=== PATIENT | female | born 1935 | race Caucasian/White ===

== ENCOUNTER 2017-10-27 21:59 | Emergency (ER) | payer MEDICARE, BC ==
[~2017-10-27] VITALS: Ht 152.4 cm; Wt 63.6 kg
[~2017-10-27 21:59] MED LIST: ACTONEL150 MG PO; ADLT ASA LOW81 MG PO; ALPRAZOLAM0.25 MG PO; ASPIRIN LOW DOS81 M2 PO; CALCIUM PO; CLOBETASOL0.053 EX; COUMADIN2.5 MG PO; COUMADIN7.5 MG PO; DOCUSATE CAL240 MG PO; DULERA1 AE1 IN; ENALAPRIL5 MG PO; FISH OIL1000 MG PO; FLAX SEED1000 MG PO; FOSAMAX70 MG PO; IBUPROFEN600 MG PO; ISOSORB MONO30 MG PO; LEXAPRO10 MG PO; LOVENOX40 MG/0.4 SC; METOPROL TAR25 MG PO; MULTI VITAMN PO; OXYBUTYNIN5 M1 PO; PANTOPRAZOLE SO40 MG PO; PRAVASTATIN SOD20 MG PO; PROTONIX40 MG PO; ROCEPHIN1 G1 IM; SIMVASTATIN20 MG PO; TIMOLOL 0.5%5 ML OP; TIMOLOL 0.5%5 ML OU; TRAMADOL HCL50 MG PO; TRAVATAN0.004 % OU; TRAVATAN0.0041 OP; VITAMIN C500 M1 PO; VITAMIN E400 UNIT PO; XANAX0.25 MG PO; [UNRECOGNIZED DRUG - CODE] PO; [UNRECOGNIZED DRUG - OTHER] PO
[2017-10-27] MEDS ORDERED: AMLODIPINE5 MG PO (22:14)
[2017-10-27] MEDS ORDERED: FLAX SEED1000 MG PO (22:15)
[2017-10-27] MEDS ORDERED: CENTRUM SILVER1 TA1 PO (22:15)
[2017-10-27] MEDS ORDERED: GLUCOSAMINE & C1 CAP PO (22:16)
[2017-10-27 22:34] LABS: URINE BILIRUBIN - DIPSTICK NEGATIVE (NEGATIVE); URINE BLOOD DIPSTICK LARGE (NEGATIVE); URINE GLUCOSE - DIPSTICK NEGATIVE (NEGATIVE); URINE KETONE NEGATIVE (NEGATIVE); URINE LEUK ESTERASE TRACE (NEGATIVE); URINE NITRITE - DIPSTICK NEGATIVE (Negative); URINE PROTEIN - DIPSTICK 100 mg/dL (NEG-TRACE); URINE SPECIFIC GRAVITY <=1.005; URINE UROBILINOGEN - DIPSTICK 0.2 E.U./dL (0.2)
[2017-10-27 22:35] LABS: URINE CLARITY BLOODY; URINE COLOR RED; URINE EPITHELIAL CELLS FEW EPI/hpf (0-FEW); URINE RBC 50-100 RBC/hpf (0-5); URINE WBC 0-2 WBC/hpf (0-5)
[2017-10-27] MEDS ORDERED: BACTRIM DS1 TAB PO (22:46)
[2017-10-27 23:10] VITALS: BP 156/78
== END 2017-10-27 23:10 | disposition home or self-care (01) ==
LOC: ED 21:59
PROVIDERS: Family Medicine
DX: N30.01 Acute cystitis with hematuria (principal); I10 Essential (primary) hypertension; I25.10 Atherosclerotic heart disease of native coronary artery without angina pectoris; I44.7 Left bundle-branch block, unspecified; K21.9 Gastro-esophageal reflux disease without esophagitis; E78.00 Pure hypercholesterolemia, unspecified; M48.00 Spinal stenosis, site unspecified; Z95.1 Presence of aortocoronary bypass graft

== ENCOUNTER 2017-10-30 10:27 | Emergency (ER) | payer MEDICARE, BC ==
[~2017-10-30] VITALS: Ht 152.4 cm; Wt 61.0 kg
[~2017-10-30 10:27] MED LIST changes: +AMLODIPINE5 MG PO; +BACTRIM DS1 TAB PO; +CENTRUM SILVER1 TA1 PO; +GLUCOSAMINE & C1 CAP PO
[2017-10-30] MEDS ORDERED: OXYBUTYNIN5 M1 PO (11:05)
[2017-10-30 11:41] LABS: URINE BILIRUBIN - DIPSTICK NEGATIVE (NEGATIVE); URINE BLOOD DIPSTICK LARGE (NEGATIVE); URINE COLOR RED; URINE GLUCOSE - DIPSTICK NEGATIVE (NEGATIVE); URINE KETONE NEGATIVE (NEGATIVE); URINE LEUK ESTERASE TRACE (NEGATIVE); URINE PH 7.5 (4.5-8.0); URINE PROTEIN - DIPSTICK 100 mg/dL (NEG-TRACE); URINE UROBILINOGEN - DIPSTICK 0.2 E.U./dL (0.2)
[2017-10-30 11:46] LABS: URINE CLARITY SL CLOUDY; URINE NITRITE - DIPSTICK POSITIVE (Negative)
[2017-10-30 11:47] LABS: URINE BACTERIA FEW hpf; URINE EPITHELIAL CELLS FEW EPI/hpf (0-FEW); URINE RBC 25-50 RBC/hpf (0-5)
[2017-10-30] MEDS ORDERED: KEFLEX500 M1 PO (12:14)
[2017-10-30] MEDS ORDERED: PYRIDIUM200 MG PO (12:14)
[2017-10-30 12:26] VITALS: BP 143/81
== END 2017-10-30 12:25 | disposition home or self-care (01) ==
LOC: ED 10:27
DX: N39.0 Urinary tract infection, site not specified (principal); I10 Essential (primary) hypertension; K21.9 Gastro-esophageal reflux disease without esophagitis; E78.00 Pure hypercholesterolemia, unspecified; I25.10 Atherosclerotic heart disease of native coronary artery without angina pectoris; Z95.1 Presence of aortocoronary bypass graft

== ENCOUNTER → 2018-04-26 | Outpatient (REF) | payer MEDICARE, BC ==
[~2018-04-26] MED LIST changes: +KEFLEX500 M1 PO; +PYRIDIUM200 MG PO
[2018-04-26 14:23] LABS: HEMATOCRIT 40.9 % (37.0-47.0); HEMOGLOBIN 13.6 g/dl (12.0-16.0); MEAN CELL VOLUME 95.1 fL CALC (80.0-100.0); MEAN CORPUSCULAR HGB 31.6 pG CALC (26.0-32.0); MEAN CORPUSCULAR HGB CONC 33.3 g/L CALC (32.0-36.0); RED BLOOD COUNT 4.3 mill/uL (4.20-5.60); RED CELL DISTRI WIDTH 13.7 % (11.5-15.5)
[2018-04-26 14:28] LABS: ALBUMIN 4.4 g/dL (3.2-5.0); ALKALINE PHOSPHATASE 59 u/l (38-126); ANION GAP 15 (6-22 (CALC)); BILIRUBIN, TOTAL 1.2 mg/dL (0.0-1.4); BUN 8 mg/dL (8-23); BUN/CREATININE RATIO 11 (12-20 (CALC)); CALCULATED LDLCHOLESTEROL 44 mg/dL (62-129 (CALC)); CARBON DIOXIDE 27 mmol/l (22-30); CHLORIDE 103 mmol/l (95-108); CHOLESTEROL HDL RATIO 1.6 (<4.4 (CALC)); CREATININE 0.7 mg/dL (0.5-1.0); GFR > 60 ML/MIN (>=60 (CALC)); GFR FOR AFR.AMER. > 60 ML/MIN (>=60 (CALC)); HDL CHOLESTEROL 96 mg/dL (>=40); SGOT/AST 34 u/l (9-36); SODIUM 140 mmol/l (137-146); TOTAL CHOLESTEROL 151 mg/dl (0-199); TOTAL PROTEIN 7.8 g/dL (6.3-8.2); TOTAL TRIGLYCERIDES 56 mg/dl (30-149); VLDL CHOLESTROL 11 mg/dl (0-48 (CALC))
[2018-04-26 14:29] LABS: POTASSIUM 4.7 mmol/l (3.5-5.1)
[2018-04-26 14:57] LABS: TSH, 3RD GENERATION 2.52 uIU/mL (0.47 - 4.68)
== END | disposition home or self-care (01) ==
LOC: LAB 13:32
PROVIDERS: ATTEND Internal Medicine
DX: I10 Essential (primary) hypertension (principal); E78.49 Other hyperlipidemia; N18.9 Chronic kidney disease, unspecified; E03.9 Hypothyroidism, unspecified; R53.83 Other fatigue; I50.22 Chronic systolic (congestive) heart failure; E11.65 Type 2 diabetes mellitus with hyperglycemia

== ENCOUNTER 2018-09-29 10:26 | Emergency (ER) | payer MEDICARE, BC ==
[~2018-09-29] VITALS: Ht 152.4 cm; Wt 60.0 kg
[2018-09-29 11:07] LABS: HEMATOCRIT 43.2 % (37.0-47.0); HEMOGLOBIN 14.2 g/dl (12.0-16.0); MEAN CELL VOLUME 93.5 fL CALC (80.0-100.0); MEAN CORPUSCULAR HGB 30.7 pG CALC (26.0-32.0); MEAN CORPUSCULAR HGB CONC 32.9 g/L CALC (32.0-36.0); NEUT# 3.07 thou/uL (2.00-7.15); RED BLOOD COUNT 4.62 mill/uL (4.20-5.60); RED CELL DISTRI WIDTH 13.1 % (11.5-15.5)
[2018-09-29 11:19] LABS: ALBUMIN 4.6 g/dL (3.2-5.0); ALKALINE PHOSPHATASE 70 u/l (38-126); ANION GAP 14 (6-22 (CALC)); BUN 10 mg/dL (8-23); BUN/CREATININE RATIO 13 (12-20 (CALC)); CARBON DIOXIDE 27 mmol/l (22-30); CHLORIDE 102 mmol/l (95-108); CREATININE 0.7 mg/dL (0.5-1.0); GFR > 60 ML/MIN (>=60 (CALC)); GFR FOR AFR.AMER. > 60 ML/MIN (>=60 (CALC)); LIPASE 176 u/l (23-300); POTASSIUM 4.5 mmol/l (3.5-5.1); SODIUM 139 mmol/l (137-146); TOTAL PROTEIN 8.6 g/dL (6.3-8.2)
[2018-09-29 11:21] LABS: SGOT/AST 148 u/l (9-36)
[2018-09-29 11:30] LABS: MYOGLOBIN 31 ng/mL (0 - 62)
[2018-09-29] MEDS ORDERED: LIPITOR40 M1 PO (12:29)
[2018-09-29] MEDS ORDERED: GNP KRILL OIL O1 CAP PO (12:30)
[2018-09-29] MEDS ORDERED: VALSARTAN160 MG PO (12:30)
[2018-09-29 13:13] LABS: URINE BILIRUBIN - DIPSTICK NEGATIVE (NEGATIVE); URINE BLOOD DIPSTICK NEGATIVE (NEGATIVE); URINE COLOR YELLOW; URINE GLUCOSE - DIPSTICK NEGATIVE (NEGATIVE); URINE KETONE NEGATIVE (NEGATIVE); URINE LEUK ESTERASE NEGATIVE (NEGATIVE); URINE NITRITE - DIPSTICK NEGATIVE (Negative); URINE PH 7.5 (4.5-8.0); URINE PROTEIN - DIPSTICK NEGATIVE (NEG-TRACE); URINE SPECIFIC GRAVITY <=1.005; URINE UROBILINOGEN - DIPSTICK 0.2 E.U./dL (0.2)
[2018-09-29] MEDS ORDERED: PROTONIX40 MG PO (14:21)
[2018-09-29 14:30] VITALS: BP 135/63
== END 2018-09-29 14:41 | disposition home or self-care (01) ==
LOC: ED 10:26
PROVIDERS: Emergency Medicine
DX: R10.13 Epigastric pain (principal); I10 Essential (primary) hypertension; Z95.1 Presence of aortocoronary bypass graft; I25.10 Atherosclerotic heart disease of native coronary artery without angina pectoris; R07.9 Chest pain, unspecified
CPT/HCPCS: S0164

== ENCOUNTER 2018-12-14 06:43 | Day surgery (SDC) | payer MEDICARE, BC ==
[~2018-12-14] VITALS: Ht 152.4 cm; Wt 59.9 kg
[~2018-12-14 06:43] MED LIST changes: +COLACE100 MG PO; +COQ10200 MG PO; +GNP KRILL OIL O1 CAP PO; +LIPITOR40 M1 PO; +LOPRESSOR 550 MG/TAB PO; +NITROSTAT0.4 MG SL; +VALSARTAN160 MG PO
[2018-12-14 08:59] VITALS: BP 151/66
== END 2018-12-14 09:11 | disposition home or self-care (01) ==
LOC: ENDO 06:43
PROVIDERS: ATTEND Internal Medicine Gastroenterology
PROC: 0D758ZZ Dilation of Esophagus, Via Natural or Artificial Opening Endoscopic (ICD-10-PCS; principal; 2018-12-14)
PROC: 0DB78ZX Excision of Stomach, Pylorus, Via Natural or Artificial Opening Endoscopic, Diagnostic (ICD-10-PCS; 2018-12-14)
DX: K22.2 Esophageal obstruction (principal); K29.51 Unspecified chronic gastritis with bleeding; Q40.8 Other specified congenital malformations of upper alimentary tract; K44.9 Diaphragmatic hernia without obstruction or gangrene; K21.9 Gastro-esophageal reflux disease without esophagitis; I25.10 Atherosclerotic heart disease of native coronary artery without angina pectoris; I11.0 Hypertensive heart disease with heart failure; I50.9 Heart failure, unspecified; Z95.1 Presence of aortocoronary bypass graft

== ENCOUNTER 2021-01-12 09:34 | Emergency (ER) | payer MEDICARE, BC ==
[~2021-01-12] VITALS: Ht 152.4 cm; Wt 64.0 kg
[2021-01-12 10:05] LABS: HEMOGLOBIN 13.4 g/dl (12.0-16.0); MEAN CELL VOLUME 97.4 fL CALC (80.0-100.0); MEAN CORPUSCULAR HGB 31.1 pG CALC (26.0-32.0); MEAN CORPUSCULAR HGB CONC 31.9 g/dL CAL (32.0-36.0); NEUT# 3.31 thou/uL (2.00-7.15); RED BLOOD COUNT 4.31 mill/uL (4.20-5.60); RED CELL DISTRI WIDTH 13.4 % (11.5-15.5)
[2021-01-12 10:16] LABS: INTERNATIONAL NORMALIZED RATIO 0.9 RATIO (0.7-1.3); PROTHROMBIN TIME 9.9 SECONDS (9.0-12.5)
[2021-01-12 10:21] LABS: ALBUMIN 4.3 g/dL (3.2-5.0); ALKALINE PHOSPHATASE 62 u/l (38-126); ANION GAP 12 (6-22 (CALC)); BILIRUBIN, TOTAL 0.7 mg/dL (0.0-1.4); BUN 9 mg/dL (8-23); BUN/CREATININE RATIO 12 (12-20 (CALC)); CARBON DIOXIDE 30 mmol/l (22-30); CHLORIDE 104 mmol/l (95-108); CREATININE 0.8 mg/dL (0.5-1.0); GFR > 60 ML/MIN (>=60 (CALC)); GFR FOR AFR.AMER. > 60 ML/MIN (>=60 (CALC)); SGOT/AST 36 u/l (9-36); SODIUM 142 mmol/l (137-146); TOTAL PROTEIN 8.2 g/dL (6.3-8.2)
[2021-01-12 10:58] LABS: URINE BILIRUBIN - DIPSTICK NEGATIVE (NEGATIVE); URINE BLOOD DIPSTICK NEGATIVE (NEGATIVE); URINE COLOR YELLOW; URINE GLUCOSE - DIPSTICK NEGATIVE (NEGATIVE); URINE KETONE NEGATIVE (NEGATIVE); URINE LEUK ESTERASE NEGATIVE (NEGATIVE); URINE PROTEIN - DIPSTICK NEGATIVE (NEG-TRACE); URINE SPECIFIC GRAVITY <=1.005; URINE UROBILINOGEN - DIPSTICK 0.2 E.U./dL (0.2)
[2021-01-12 10:59] LABS: URINE NITRITE - DIPSTICK NEGATIVE (Negative)
[2021-01-12 12:18] VITALS: BP 119/75
== END 2021-01-12 13:10 | disposition short-term general hospital (02) ==
LOC: ED 09:34
PROVIDERS: Family Medicine
DX: I65.23 Occlusion and stenosis of bilateral carotid arteries (principal); I10 Essential (primary) hypertension; E78.5 Hyperlipidemia, unspecified; I25.10 Atherosclerotic heart disease of native coronary artery without angina pectoris; K21.9 Gastro-esophageal reflux disease without esophagitis; M48.061 Spinal stenosis, lumbar region without neurogenic claudication; M19.90 Unspecified osteoarthritis, unspecified site; Z95.1 Presence of aortocoronary bypass graft; Z87.891 Personal history of nicotine dependence; Z79.82 Long term (current) use of aspirin; Z20.822 Contact with and (suspected) exposure to COVID-19
CPT/HCPCS: Q9967